=== PATIENT | female | born 1955 | race Caucasian/White ===

== ENCOUNTER 2016-09-26 14:24 | Emergency (ER) | payer OTHER ==
--- NOTE | ~2016-09-26 | EKG ---
PATIENT: VLAD BURGESS UNIT #: [id number] Ventricular Rate: 94 BPM Atrial Rate: 94 BPM P-R Interval: 134 ms QRS Duration: 82 ms Q-T Interval: 368 ms QTC Calculation(Bezet): [address]: 67 degrees Calculated R [address]: 58 degrees Calculated T [address]: 71 degrees Diagnosis Line: Normal sinus rhythm Diagnosis Line: Normal ECG Diagnosis Line: No previous ECGs available Diagnosis Line: Confirmed by CASH AGUILLON MD ([id number]) on Diagnosis Line: 09/28/2016 8:35:54 AM INTERPRETING MD: HENNA JEWELL
--- NOTE | ~2016-09-26 | CR63 ---
[facility] A Service of [facility] RADIOLOGY TEXT RESULTS PATIENT: VLAD BURGESS LOCATION: [facility] : 57 UNIT #: [id number] AGE: [address]: Zach Hernández MD SEX: F ORDER DR: [id number] [facility] [address] [place], [place] [address] [id number] E MR#: [id number] #: [id number] NAME: VLAD BURGESS. : 1955 SEX: F STUDY DATE/TIME: 09/26/2016 16:59 UNIT: [facility] ROOM: STUDY DESCRIPTION: CR Chest 2 View Attending Physician: Zach Hernández M.D. Ordering Physician: Zach Hernández M.D. MEDICAL IMAGING REPORT This report is preliminary unless electronic signature is present EXAM Chest x-ray 2 views HISTORY Short of air, cough, congestion, fever, asthma, symptoms for 1 week. No injury. COMMENT 2 views of the chest are reviewed. There is no previous study of the chest. The heart size is normal. There is distortion of parenchymal architecture with likely emphysematous changes upper lungs and some crowding of markings and/or parenchymal scarring at lung bases. The lungs are hyperinflated and there is exaggeration of thoracic kyphosis with multiple level mild anterior wedging and endplate spondylosis. There is some possible airspace disease in the lower lobes/right middle lobe/lingula best appreciated on the lateral view. Again this could be parenchymal scarring and crowding of parenchymal markings since I do not have a comparison study. Please correlate for clinical concern for aspiration or pneumonia. Most helpful would be comparison to outside films. No congestive failure, pleural effusion or pneumothorax is suspected. IMPRESSION Evidence of chronic obstructive lung disease with at least emphysematous changes at apices and some component of parenchymal scarring or compressive atelectasis suspected at lung bases. Since I do not have comparison films, I cannot exclude a component of superimposed airspace disease at the bilateral lower lobes/right middle lobe and lingula. Please correlate with the clinical presentation. Most helpful would be comparison to the outside films to determine how much of the findings are acute and how much is chronic. Follow up imaging is recommended. [facility] A Service of [facility] RADIOLOGY TEXT RESULTS PATIENT: VLAD BURGESS [id number] 57 UNIT #: [id number] AGE: [address]: Zach Hernández MD SEX: F ORDER DR: Dictated by... Ariana Morrison M.D. THIS IS AN ELECTRONICALLY VERIFIED REPORT Ariana Morrison M.D. at 09/27/2016 1:43 PM CATALINA/festus TD: 09/27/2016 07:36 JOB #: [id number] MEDICAL IMAGING REPORT Page 1 of 1 COPY
[~2016-09-26 14:24] MED LIST: CLEOCIN PO; LEVAQUIN PO; WELLBUTRIN PO; ZYRTEC PO
[2016-09-26 15:58] LABS: BASOPHIL# 0.1 X10e3 (0-0.3); EOSINOPHIL# 0.1 X10e3 (0-0.7); EOSINOPHIL% 0.6 % (0.0-7.0); HEMATOCRIT 47.6 % (35.0-45.0); HEMOGLOBIN 15.7 gm/dL (12.0-16.0); LYMPHOCYTE# 1.4 X10e3 (1.0-3.5); LYMPHOCYTE% 13.6 % (17.0-45.0); MEAN CELL VOLUME 87.3 FL (83-96); MEAN CORPUSCULAR HEMOGLOBIN 28.8 PG (28-34); MEAN PLATELET VOLUME 8.6 FL (6.5-11.5); MONOCYTE# 0.6 X10e3 (0-1.0); MONOCYTE% 5.7 % (3.0-12.0); NEUTROPHIL% 79.1 % (40-75); PLATELET COUNT 301 X10e3 (140-420); RED BLOOD COUNT 5.45 X10e (3.90-5.30); RED CELL DISTRIBUTION WIDTH 14.5 % (11.0-15.5); WHITE BLOOD COUNT 10.1 X10e3 (4.0-10.5)
[2016-09-26 15:59] LABS: DIFF IND NO
[2016-09-26 16:17] LABS: POC - CKMB <1.0 ng/mL (0.0-7.9); POC - TROPONIN <0.05 ng/mL (<=0.05)
[2016-09-26 16:19] LABS: BUN/CREATININE RATIO 7.77; CALCIUM SERUM 9.2 mg/dL (8.4-10.2); CREATININE SERUM 0.9 mg/dL (0.6-1.4); GLOM FILT RATE Estimated 69.5 mL/min (>60); POTASSIUM 4.2 mmol/L (3.5-5.1)
== END 2016-09-26 19:45 | disposition home or self-care (01) ==
LOC: CED 14:24
PROVIDERS: Emergency Medicine
DX: J44.1 Chronic obstructive pulmonary disease with (acute) exacerbation (principal); J20.9 Acute bronchitis, unspecified; J44.0 Chronic obstructive pulmonary disease with (acute) lower respiratory infection; F17.200 Nicotine dependence, unspecified, uncomplicated; Z88.0 Allergy status to penicillin; Z88.5 Allergy status to narcotic agent; Z88.1 Allergy status to other antibiotic agents
CPT/HCPCS: 36415; 71020; 80048; 82553; 83880; 84484; 85025; 85379; 93005; 94640; 96360; 99284

== ENCOUNTER 2016-10-28 21:07 | Emergency (ER) | payer OTHER | END 2016-10-29 | disposition home or self-care (01) | LOC: CED 21:07 → CFTX 21:07 | DX: Z77.098 Contact with and (suspected) exposure to other hazardous, chiefly nonmedicinal, chemicals (principal); F17.210 Nicotine dependence, cigarettes, uncomplicated; Z88.5 Allergy status to narcotic agent; Z88.0 Allergy status to penicillin; Z88.8 Allergy status to other drugs, medicaments and biological substances | CPT/HCPCS: 99283 ==